=== PATIENT | male | born 1965 | race Caucasian/White ===

== ENCOUNTER 2018-03-17 10:26 | Emergency (ER) | payer SELFPAY ==
[~2018-03-17] VITALS: Ht 185.4 cm; Wt 88.5 kg
[~2018-03-17 10:26] MED LIST: FLOMAX0.4 M1 PO; ZANTAC150 M1 PO
[2018-03-17 10:31] VITALS: BP 124/79
--- NOTE | 2018-03-17 11:45 | ED HAND/WRIST INJURY COMPLAINT ---
History of Present Illness General Chief Complaint: Laceration Procedure Stated Complaint: LACS TO R HAND Source: patient Exam Limitations: no limitations Vital Signs & Intake/Output Vital Signs & Intake/Output Vital Signs Date Time Temp Pulse Resp B/P B/P Pulse O2 O2 Flow FiO2 Mean Ox Delivery Rate 03/17 1031 97.9 74 20 124/79 97 Room Air Allergies Coded Allergies: No Known Allergies (03/17/18) Reconcile Medications Ranitidine HCl (Zantac) 150 MG TABLET 1 TAB PO BID PRN GERD (Reported) Tamsulosin HCl (Flomax) 0.4 MG CAP.ER.24H 1 CAP PO DAILY KIDNEY STONES ( Reported) Triage Note: PT TO ER C/C LAC TO R HAND S/P INJURY WHILE WALKING THE DOG LAST NIGHT. STATES THE DOG TOOK OFF AND THE CLIP ON THE LEASH GAVE HIM SOME CUTS TO MIDDLE AND RING FINGERS OF R HAND. CLEANED WOUND OUT WITH PEROXIDE LAST NIGHT BUT THIS MORNING IT WAS STILL BLEEDING SO WANTED IT CHECKED OUT. HAS DRESSINGS C/D/I AT TRIAGE, WOUNDS NOT VISUALIZED. Triage Nurses Notes Reviewed? yes Occurred: yesterday Duration: day(s): (1), better, continues in ED Timing: single episode today Injury Environment: home Severity: mild, moderate Severity Numbers: 6 Pain/Injury Location: Left: 2nd finger, 4th finger. Method of Injury: laceration HPI: 52-year-old male history of BPH presenting evaluation of lacerations to his right hand. Patient reports he was walking his dog last night the dog pulled on the leash and the piece of metal on the leash caused lacerations to the second and fourth digits on the palmar side. Patient reports cleaned and dressed the wounds but decided he should come in today because they were large. Patient reports he is up-to-date on tetanus. Denies any numbness or tingling or difficulty with range of motion or other injuries. (Josse Cardoso) Past History Travel History Traveled to [place] past 21 day No Medical History Any Pertinent Medical History? see below for history Neurological: NONE EENT: NONE Cardiovascular: NONE Respiratory: NONE Gastrointestinal: NONE Hepatic: NONE Renal: benign prost hyperplasia Musculoskeletal: NONE Psychiatric: NONE Endocrine: NONE Blood Disorders: NONE Cancer(s): NONE PROJECT DEVELOPMENT LEADER/Reproductive: NONE Surgical History Surgical History: non-contributory Psychosocial History What is your primary language Faroese Tobacco Use: Never used ETOH Use: occasional use Illicit Drug Use: denies illicit drug use Family History Hx Contributory? No (Josse Cardoso) Review of Systems Review of Systems Constitutional: Reports: no symptoms. EENTM: Reports: no symptoms. Respiratory: Reports: no symptoms. Cardiovascular: Reports: no symptoms. GI: Reports: no symptoms. Genitourinary: Reports: no symptoms. Musculoskeletal: Reports: no symptoms. Skin: Reports: see HPI (laceration). Neurological/Psychological: Reports: no symptoms. Hematologic/Endocrine: Reports: no symptoms. Immunologic/Allergic: Reports: no symptoms. All Other Systems: Reviewed and Negative (Josse Cardoso) Physical Exam Physical Exam General Appearance: well developed/nourished, no apparent distress, alert, awake Head: atraumatic, normal appearance Eyes: Bilateral: normal appearance, EOMI. Ears, Nose, Throat: hearing grossly normal Neck: normal inspection, supple, full range of motion Cardiovascular/Respiratory: no respiratory distress Elbow Left: normal range of motion, normal inspection Elbow Right: normal range of motion, normal inspection Forearm Left: normal range of motion, normal inspection Forearm Right: normal range of motion, normal inspection Wrist Left: normal range of motion, normal inspection Wrist Right: normal range of motion, normal inspection Hand Left: normal inspection, normal range of motion Hand Right: normal range of motion, 2nd finger, 4th finger, there are 2 horizontal 1.5 cm linear lacerations to the palmar aspect of the right second and fourth digits. No damage to the nail no active bleeding no subcutaneous tissue. There does appear to be some granulation tissue forming. Full range of motion is intact strength 5 out of 5 neurovascular supply intact no foreign bodies Neurologic/Tendon: normal sensation, normal motor functions, normal tendon functions, responds to pain, no evidence tendon injury, no pulse deficit Skin: intact, normal color, warm/dry (Josse Cardoso) Progress Differential Diagnosis: cellulitis, contusion, dislocation, fracture, sprain, tenosynovitis Plan of Care: Patient is here for evaluation of lacerations to his right hand. The lacerations occurred greater than 24 hours ago. They appear to be healing already with granulation tissue. They will not be closed with sutures. The wounds were cleaned with Betadine and sterile water. Bacitracin and sterile dressing applied. Discussed wound care procedures in detail. Patient is hard he up-to-date on tetanus discussed return precautions patient agrees to plan (Josse Cardoso) Departure Departure Disposition: HOME OR SELF CARE Condition: Stable Clinical Impression Primary Impression: Finger laceration Qualifiers: Encounter type: initial encounter Finger: unspecified finger Damage to nail status: without damage Foreign body presence: without foreign body Laterality: right Qualified Code: S61.219A - Laceration without foreign body of unspecified finger without damage to nail, initial encounter Referrals: Hali Nj APRN (PCP/Family) Additional Instructions: keep the areas clean and dry. tylenol and ibuoprofen for pain. change dressing daily. after day 3-4 leave open to air dry. look for signs of infection like redness swelling discharge or pain. follow up with your PCP for a rechekc in 3-4 days. return sooner with amny concerns. Departure Forms: Customer Survey General Discharge Information (Josse Cardoso) PA/MANAGER VALIDATION Co-Sign Statement Statement: ED Attending supervision documentation- [] I saw and evaluated the patient. I have also reviewed all the pertinent lab results and diagnostic results. I agree with the findings and the plan of care as documented in the PA's/MANAGER VALIDATION's documentation. x I have reviewed the ED Record and agree with the PA's/MANAGER VALIDATION's documentation. [] Additions or exceptions (if any) to the PAs/MANAGER VALIDATION's note and plan are summarized below: [] (Ziyad RODRÍGUEZ,Biju)
== END 2018-03-17 11:51 ==
LOC: ERH 10:26
DX: S61.210A Laceration without foreign body of right index finger without damage to nail, initial encounter (principal); S61.214A Laceration without foreign body of right ring finger without damage to nail, initial encounter; W45.8XXA Other foreign body or object entering through skin, initial encounter; Y93.01 Activity, walking, marching and hiking